=== PATIENT | female | born 1995 | race Native Hawaiian/Other Pacific Islander ===

== ENCOUNTER 2017-10-25 16:00 | Inpatient (IN) | payer BC, OTHER ==
[~2017-10-25] VITALS: Ht 160 cm; Wt 54.5 kg
[~2017-10-25 16:00] MED LIST: DEXAMETHASONE SOD PHOS 4 MG/ML VIAL IV ONE; GLYCOPYRROLATE 1 MG/5 ML SYRINGE IV PUSH ONE; LIDOCAINE HCL 1% PF 5 ML SYRINGE OTHER ONE; NEOSTIGMINE 5 MG/5 ML SYRINGE IV PUSH ONE; ONDANSETRON HCL 4 MG/2 ML VIAL IV ONE; PROPOFOL 200 MG/20 ML AMP IV ONE; ROCURONIUM INJ 50 MG/5 ML SYRINGE IV PUSH ONE; Z.0.NO CURRENT MEDS
[2017-10-25] MEDS ORDERED: SODIUM CHLOR 0.9% 1000 ML INJ 1,000 ML IV SCH ×2 (16:07→19:16)
[2017-10-25 16:14] VITALS: BP 152/71; PULSE 137; RESP 18; TEMP 100.5; O2SAT 100
[2017-10-25] MEDS ORDERED: MORPHINE SULFATE 4 MG/ML INJ IV PUSH ONE ×2 (16:15→17:30)
[2017-10-25] MEDS ORDERED: ONDANSETRON HCL 4 MG/2 ML VIAL IVP ONE (16:15)
[2017-10-25] MEDS ORDERED: PIPERACIL-TAZO 3.375 GM PREMIX 50 ML IV ONE ×2 (16:15→16:30)
[2017-10-25] MEDS ORDERED: ACETAMINOPHEN 325 MG TAB PO ONE (16:15)
[2017-10-25 16:17] VITALS: BP 152/71; PULSE 135; RESP 16; TEMP 100.5; O2SAT 99
[2017-10-25] MEDS ORDERED: SODIUM CHLOR 0.9% 1000 ML INJ 1,000 ML IV ONE ×3 (16:30→18:15)
[2017-10-25] MEDS ORDERED: METOCLOPRAMIDE HCL 10 MG/2 ML VIAL IV PUSH ONE (16:30)
[2017-10-25 16:36] LABS: AUTOMATED NEUTROPHIL # 14.9 TH/MM3 (1.8-7.7); BASOPHIL % 0.2 % (0.0-2.0); HEMATOCRIT 35.1 % (35.0-46.0); HEMOGLOBIN 11.1 GM/DL (11.6-15.3); LYMPH % 5.4 % (9.0-44.0); LYMPHOCYTE # 0.9 TH/MM3 (1.0-4.8); MEAN CELL VOLUME 75.4 FL (80.0-100.0); MEAN CORPUSCULAR HEMOGLOBIN 23.9 PG (27.0-34.0); MEAN CORPUSCULAR HGB CONC 31.7 % (32.0-36.0); MEAN PLATELET VOLUME 8.9 FL (7.0-11.0); MONO % 2.3 % (0.0-8.0); MONOCYTE # 0.4 TH/MM3 (0-0.9); NEUT % 92.1 % (16.0-70.0); PLATELET COUNT 362 TH/MM3 (150-450); RED BLOOD COUNT 4.65 MIL/MM3 (4.00-5.30); RED CELL DISTRIBUTION WIDTH 17.4 % (11.6-17.2); WHITE BLOOD COUNT 16.2 TH/MM3 (4.0-11.0)
[2017-10-25 16:43] LABS: BACTERIA, URINE OCC /hpf; BILIRUBIN, URINE NEG (NEG); BLOOD, URINE NEG (NEG); GLUCOSE,URINE NEG (NEG); KETONE, URINE 20 mg/dL (NEG); MUCUS URINE MANY /lpf (OCC); NITRITE,URINE NEG (NEG); SQUAMOUS EPITHELIAL CELL URINE 10 /hpf (0-5); URINE COLOR Amber (YELLW/STRAW); URINE LEUKOCYTE ESTERASE TRACE (NEG)
[2017-10-25 16:51] VITALS: BP 125/73; PULSE 104; RESP 16; O2SAT 100
[2017-10-25 16:54] LABS: ALBUMIN 3.7 GM/DL (3.4-5.0); ALT (GPT) 13 U/L (9-42); AST (GOT) 9 U/L (16-38); BICARBONATE 20.2 MEQ/L (21.0-32.0); BLOOD UREA NITROGEN 7 MG/DL (7-18); CHLORIDE 104 MEQ/L (98-107); CREATININE 0.86 MG/DL (0.50-1.00); GLOMERULAR FILTRATION RATE 84 ML/MIN (>89); GLUCOSE,RANDOM 99 MG/DL (74-106); SODIUM (NA) 137 MEQ/L (136-145)
[2017-10-25 16:56] LABS: ALKALINE PHOSPHATASE 52 U/L (45-117); TOTAL BILIRUBIN ADULT 0.6 MG/DL (0.2-1.0); TOTAL PROTEIN 8.1 GM/DL (6.4-8.2)
[2017-10-25] MEDS ORDERED: IOHEXOL 350 MG/ML 10 ML VIAL (for RAD DIAG) IVCONTRAST ONE (17:10)
--- NOTE | 2017-10-25 17:20 | RADRPT ---
EXAM DATE: 10/25/2017 5:08 PM EDT AGE/SEX: 22 years / Female INDICATIONS: Right sided abdominal pain, fever. CLINICAL DATA: This is the patient's initial encounter. Patient reports that signs and symptoms have been present for 1 day and indicates a pain score of 4/10. MEDICAL/SURGICAL HISTORY: None. Cholecystectomy. ORAL CONTRAST: No oral contrast ingested. RADIATION DOSE: 6.64 CTDI (mGy) COMPARISON: No prior exams available for comparison. TECHNIQUE: Multiple contiguous axial images were obtained through the abdomen and pelvis following b olus infusion of 72 ml Omnipaque 350 (iohexol) nonionic water-soluble contrast as a single exam dos e. No oral contrast ingested. Using automated exposure control and adjustment of the mA and/or kV ac cording to patient size, radiation dose was kept as low as reasonably achievable to obtain optimal di agnostic quality images. DICOM format image data is available electronically for review and comparis on. FINDINGS: Lower Lungs: The visualized lower lungs are clear. Liver: The liver has a homogeneous density without space-occupying lesion. There is no dilation of th e biliary tree. Spleen: Homogeneous density without enlargement. Pancreas: Unremarkable without mass or calcification. Kidneys: Normal in size and shape. No evidence of mass or hydronephrosis. Adrenal Glands: Unremarkable. Aorta: The aorta and proximal iliac vessels are grossly unremarkable without aneurysmal dilation. Bowel/Mesentery: The bowel loops are grossly unremarkable. The cecum and sigmoid colon have a normal configuration. The appendix is not clearly located. Abdominal Wall: Intact. Retroperitoneum: No evidence of adenopathy in the retrocrural, para-aortic, or deep pelvic regions. Bladder: Contours are smooth. Reproductive Organs: No abnormal masses or calcifications seen. Small volume of nonspecific free pel emre fluid identified. Inguinal: The inguinal region is unremarkable without evidence of adenopathy. Bony Structures: Unremarkable. CONCLUSION: Nonspecific free pelvic fluid. Electronically signed by: Perry Montoya MD 10/25/2017 5:18 PM EDT
--- NOTE | 2017-10-25 18:07 | PD ---
HPI Chief Complaint: Abdominal Pain Time Seen by Provider: 16:04 Travel History International Travel<30 days: No Contact w/Intl Traveler<30days: No Traveled to known affect area: No History of Present Illness HPI 22-year-old female that presents to the ED for evaluation of right lower quadrant pain. Apparently per patient she has had this for about 14 hours now. Per patient is becoming more severe. She has had episodes like this before but never as long-lasting as this 1. Per patient his pain is more severe. She went to see urgent care at [place] and they took a look at her and told her to come here as she was very tachycardic, had a fever and she had significant right lower quadrant pain. She was brought here by ambulance. She states that the pain currently is 10 out of 10. She feels very uncomfortable with laying or sitting. Standing makes it better. She denies any discharge. No possibility of . No medical issues. Takes no medications. No urinary or bowel movement issues. She does have some chills and sweats. She has had surgery for her gallbladder removal in 2009. Denies any nausea or vomiting. No chest pain or shortness of breath. PFSH Past Medical History Medical History: Denies Significant Hx Diminished Hearing: No Immunizations Current: Yes Tetanus Vaccination: < 5 Years Influenza Vaccination: Yes ?: Not Past Surgical History Abdominal Surgery: Yes (GALL BLADDER 01/07) Cholecystectomy: Yes Pacemaker: No Social History Alcohol Use: No Tobacco Use: No Substance Use: No Allergies-Medications (Allergen,Severity, Reaction): Coded Allergies: No Known Allergies (Verified Allergy, Unknown, 10/25/17) Reported Meds & Prescriptions Reported Meds & Active Scripts Active No Active Prescriptions or Reported Medications Review of Systems Except as stated in HPI: all other systems reviewed are Neg Physical Exam Narrative GENERAL: SKIN: Warm and dry. HEAD: Atraumatic. Normocephalic. EYES: Pupils equal and round. No scleral icterus. No injection or drainage. ENT: No nasal bleeding or discharge. Mucous membranes pink and moist. Tongue is midline. No uvula deviation. NECK: Trachea midline. No JVD. CARDIOVASCULAR: Regular rate and rhythm. No murmurs, S3, S4. RESPIRATORY: No accessory muscle use. Clear to auscultation. Breath sounds equal bilaterally. GASTROINTESTINAL: Abdomen soft, significant pain on the right lower quadrant with any touch, nondistended. Hepatic and splenic margins not palpable. MUSCULOSKELETAL: Extremities without clubbing, cyanosis, or edema. No obvious deformities. Full range of motion of the upper and lower extremities bilaterally. 2+ pulses bilaterally. NEUROLOGICAL: Awake and alert. No obvious cranial nerve deficits. Motor grossly within normal limits. Five out of 5 muscle strength in the arms and legs. Normal speech. PSYCHIATRIC: Appropriate mood and affect; insight and judgment normal. Data Data Last Documented VS Vital Signs Date Time Temp Pulse Resp B/P (MAP) Pulse Ox O2 Delivery O2 Flow Rate FiO2 10/25/17 16:51 104 16 125/73 (90) 100 Room Air 10/25/17 16:17 100.5 Orders Orders Complete Blood Count With Diff (10/25/17 16:07) Comprehensive Metabolic Panel (10/25/17 16:07) Lipase (10/25/17 16:07) Lactic Acid (10/25/17 16:07) Urinalysis - C+S If Indicated (10/25/17 16:07) Iv Access Insert/Monitor (10/25/17 16:07) Ecg Monitoring (10/25/17 16:07) Oximetry (10/25/17 16:07) Morphine Inj (Morphine Inj) (10/25/17 16:15) Ondansetron Inj (Zofran Inj) (10/25/17 16:15) Sodium Chlor 0.9% 1000 Ml Inj (Ns 1000 M (10/25/17 16:07) Electrocardiogram (10/25/17 16:07) Acetaminophen (Tylenol) (10/25/17 16:15) Piperacil-Tazo 3.375 Gm Premix (Zosyn 3. (10/25/17 16:15) Ct Abd/Pel W Iv Contrast(Rout) (10/25/17 16:15) Sodium Chlor 0.9% 1000 Ml Inj (Ns 1000 M (10/25/17 16:30) Metoclopramide Inj (Reglan Inj) (10/25/17 16:30) Piperacil-Tazo 3.375 Gm Premix (Zosyn 3. (10/25/17 16:30) Ed Urine Pregnancytest Poc (10/25/17 16:37) Urine Culture (10/25/17 16:25) Iohexol 350 Inj (Omnipaque 350 Inj) (10/25/17 17:10) Sodium Chlor 0.9% 1000 Ml Inj (Ns 1000 M (10/25/17 17:30) Morphine Inj (Morphine Inj) (10/25/17 17:30) Admit Order (Ed Use Only) (10/25/17 17:51) Labs Laboratory Tests Test 10/25/17 16:25 White Blood Count 16.2 TH/MM3 Red Blood Count 4.65 MIL/MM3 Hemoglobin 11.1 GM/DL Hematocrit 35.1 % Mean Corpuscular Volume 75.4 FL Mean Corpuscular Hemoglobin 23.9 PG Mean Corpuscular Hemoglobin Concent 31.7 % Red Cell Distribution Width 17.4 % Platelet Count 362 TH/MM3 Mean Platelet Volume 8.9 FL Neutrophils (%) (Auto) 92.1 % Lymphocytes (%) (Auto) 5.4 % Monocytes (%) (Auto) 2.3 % Eosinophils (%) (Auto) 0.0 % Basophils (%) (Auto) 0.2 % Neutrophils # (Auto) 14.9 TH/MM3 Lymphocytes # (Auto) 0.9 TH/MM3 Monocytes # (Auto) 0.4 TH/MM3 Eosinophils # (Auto) 0.0 TH/MM3 Basophils # (Auto) 0.0 TH/MM3 CBC Comment DIFF FINAL Differential Comment Urine Color Edith Urine Turbidity CLOUDY Urine pH 6.0 Urine Specific [place] 1.025 Urine Protein 30 mg/dL Urine Glucose (UA) NEG mg/dL Urine Ketones 20 mg/dL Urine Occult Blood NEG Urine Nitrite NEG Urine Bilirubin NEG Urine Urobilinogen LESS THAN 2 mg/dL Urine Leukocyte Esterase TRACE Urine RBC 6 /hpf Urine WBC 9 /hpf Urine Squamous Epithelial Cells 10 /hpf Urine Bacteria OCC /hpf Urine Mucus MANY /lpf Microscopic Urinalysis Comment CULTURE INDICATED Blood Urea Nitrogen 7 MG/DL Creatinine 0.86 MG/DL Random Glucose 99 MG/DL Total Protein 8.1 GM/DL Albumin 3.7 GM/DL Calcium Level 9.0 MG/DL Alkaline Phosphatase 52 U/L Aspartate Amino Transf (AST/SGOT) 9 U/L Alanine Aminotransferase (ALT/SGPT) 13 U/L Total Bilirubin 0.6 MG/DL Sodium Level 137 MEQ/L Potassium Level 3.7 MEQ/L Chloride Level 104 MEQ/L Carbon Dioxide Level 20.2 MEQ/L Anion Gap 13 MEQ/L Estimat Glomerular Filtration Rate 84 ML/MIN Lactic Acid Level 3.3 mmol/L Lipase 65 U/L MDM Medical Decision Making Medical Screen Exam Complete: Yes Emergency Medical Condition: Yes Medical Record Reviewed: Yes Interpretation(s) Last Impressions Abdomen/Pelvis CT 10/25/17 1615 Signed Impressions: CONCLUSION: Nonspecific free pelvic fluid. CBC & BMP Diagram 10/25/17 16:25 Total Protein 8.1, Albumin 3.7, Calcium Level 9.0, Alkaline Phosphatase 52, Aspartate Amino Transf (AST/SGOT) 9 L, Alanine Aminotransferase (ALT/SGPT) 13, Total Bilirubin 0.6 lactic acid elevated Differential Diagnosis Right lower quadrant pain versus appendicitis versus acute abdomen versus UTI versus rupture appendix versus sepsis Narrative Course 22-year-old female that presents to the ED for evaluation of right lower quadrant abdominal pain. Patient was properly examined by me in my attending Dr. Hernandez who agrees with plan. There is definitely concern for appendicitis versus ruptured appendix. She is very uncomfortable examined she is very tachycardic with a fever. Labs and imaging were ordered. Labs and imaging show what appears to be sepsis. CT did not appreciate appendicitis. I discussed the case with Dr. Bhakta for radiology who reviewed the CT and concluded the likely symptoms are appendicitis and patient will likely need general surgery consult. I spoke with Dr. Pfeiffer over the phone who will come here to evaluate the patient for likely surgery tonight, he agreed to admit patient to his service. Sepsis Criteria SIRS Criteria (2 or more): Heart rate over 90, WBC > 55029, < 4000 or > 10% bands Sepsis Criteria (SIRS+source): Infect source susp/known Severe Sepsis (+one): Lactate >2 Diagnosis Primary Impression: Appendicitis, acute Qualified Codes: K35.80 - Unspecified acute appendicitis Additional Impression: Sepsis Qualified Codes: A41.9 - Sepsis, unspecified organism Admitting Information Admitting Physician Requests: Admit Scripts No Active Prescriptions or Reported Meds Devon Jones Oct 25, 2017 18:07
--- NOTE | 2017-10-25 18:13 | PD ---
Data Data Last Documented VS Vital Signs Date Time Temp Pulse Resp B/P (MAP) Pulse Ox O2 Delivery O2 Flow Rate FiO2 10/25/17 16:51 104 16 125/73 (90) 100 Room Air 10/25/17 16:17 100.5 Orders Orders Complete Blood Count With Diff (10/25/17 16:07) Comprehensive Metabolic Panel (10/25/17 16:07) Lipase (10/25/17 16:07) Lactic Acid (10/25/17 16:07) Urinalysis - C+S If Indicated (10/25/17 16:07) Iv Access Insert/Monitor (10/25/17 16:07) Ecg Monitoring (10/25/17 16:07) Oximetry (10/25/17 16:07) Morphine Inj (Morphine Inj) (10/25/17 16:15) Ondansetron Inj (Zofran Inj) (10/25/17 16:15) Sodium Chlor 0.9% 1000 Ml Inj (Ns 1000 M (10/25/17 16:07) Electrocardiogram (10/25/17 16:07) Acetaminophen (Tylenol) (10/25/17 16:15) Piperacil-Tazo 3.375 Gm Premix (Zosyn 3. (10/25/17 16:15) Ct Abd/Pel W Iv Contrast(Rout) (10/25/17 16:15) Sodium Chlor 0.9% 1000 Ml Inj (Ns 1000 M (10/25/17 16:30) Metoclopramide Inj (Reglan Inj) (10/25/17 16:30) Piperacil-Tazo 3.375 Gm Premix (Zosyn 3. (10/25/17 16:30) Ed Urine Pregnancytest Poc (10/25/17 16:37) Urine Culture (10/25/17 16:25) Iohexol 350 Inj (Omnipaque 350 Inj) (10/25/17 17:10) Sodium Chlor 0.9% 1000 Ml Inj (Ns 1000 M (10/25/17 17:30) Us Pelvis Comp W Doppler (10/25/17 ) Morphine Inj (Morphine Inj) (10/25/17 17:30) Admit Order (Ed Use Only) (10/25/17 17:51) Labs Laboratory Tests Test 10/25/17 16:25 White Blood Count 16.2 TH/MM3 Red Blood Count 4.65 MIL/MM3 Hemoglobin 11.1 GM/DL Hematocrit 35.1 % Mean Corpuscular Volume 75.4 FL Mean Corpuscular Hemoglobin 23.9 PG Mean Corpuscular Hemoglobin Concent 31.7 % Red Cell Distribution Width 17.4 % Platelet Count 362 TH/MM3 Mean Platelet Volume 8.9 FL Neutrophils (%) (Auto) 92.1 % Lymphocytes (%) (Auto) 5.4 % Monocytes (%) (Auto) 2.3 % Eosinophils (%) (Auto) 0.0 % Basophils (%) (Auto) 0.2 % Neutrophils # (Auto) 14.9 TH/MM3 Lymphocytes # (Auto) 0.9 TH/MM3 Monocytes # (Auto) 0.4 TH/MM3 Eosinophils # (Auto) 0.0 TH/MM3 Basophils # (Auto) 0.0 TH/MM3 CBC Comment DIFF FINAL Differential Comment Urine Color Edith Urine Turbidity CLOUDY Urine pH 6.0 Urine Specific [place] 1.025 Urine Protein 30 mg/dL Urine Glucose (UA) NEG mg/dL Urine Ketones 20 mg/dL Urine Occult Blood NEG Urine Nitrite NEG Urine Bilirubin NEG Urine Urobilinogen LESS THAN 2 mg/dL Urine Leukocyte Esterase TRACE Urine RBC 6 /hpf Urine WBC 9 /hpf Urine Squamous Epithelial Cells 10 /hpf Urine Bacteria OCC /hpf Urine Mucus MANY /lpf Microscopic Urinalysis Comment CULTURE INDICATED Blood Urea Nitrogen 7 MG/DL Creatinine 0.86 MG/DL Random Glucose 99 MG/DL Total Protein 8.1 GM/DL Albumin 3.7 GM/DL Calcium Level 9.0 MG/DL Alkaline Phosphatase 52 U/L Aspartate Amino Transf (AST/SGOT) 9 U/L Alanine Aminotransferase (ALT/SGPT) 13 U/L Total Bilirubin 0.6 MG/DL Sodium Level 137 MEQ/L Potassium Level 3.7 MEQ/L Chloride Level 104 MEQ/L Carbon Dioxide Level 20.2 MEQ/L Anion Gap 13 MEQ/L Estimat Glomerular Filtration Rate 84 ML/MIN Lactic Acid Level 3.3 mmol/L Lipase 65 U/L [facility] [place] Medical Record Reviewed: Yes Supervised Visit with RED: Yes Narrative Course I, Dr. Hernandez, have reviewed the advance practice practitioner's documentation and am in agreement, met with the patient face to face, made the diagnosis, and the medical decision making was done by me. *My assessment and Findings: CBC & BMP Diagram 10/25/17 16:25 Total Protein 8.1, Albumin 3.7, Calcium Level 9.0, Alkaline Phosphatase 52, Aspartate Amino Transf (AST/SGOT) 9 L, Alanine Aminotransferase (ALT/SGPT) 13, Total Bilirubin 0.6 Lactic acid 3.3 Lipase normal Urinalysis is consistent with cystitis Urine is negative CT scan shows possible appendicitis The patient has very tender abdomen which is soft and not peritoneal. She nonetheless is tachycardic with leukocytosis and fever. His presentation is concerning for appendicitis. This was discussed with Dr. Bhakta of radiology. This was also discussed with Dr. Pfeiffer a general surgery. RAMSYE Jones coordinated the care in the ED and the patient will go to the OR under the care of Dr. Kentrell kapoor. Sepsis Criteria SIRS Criteria (2 or more): Heart rate over 90, WBC > 09236, < 4000 or > 10% bands Sepsis Criteria (SIRS+source): Infect source susp/known Severe Sepsis (+one): Lactate >2 Diagnosis Primary Impression: Appendicitis, acute Qualified Codes: K35.80 - Unspecified acute appendicitis Additional Impression: Sepsis Qualified Codes: A41.9 - Sepsis, unspecified organism Admitting Information Admitting Physician Requests: Admit Scripts No Active Prescriptions or Reported Meds Oscar Hernandez MD Oct 25, 2017 18:13
[2017-10-25 18:29] VITALS: BP 123/89; PULSE 105; RESP 16; TEMP 99.4; O2SAT 100
[2017-10-25] MEDS ORDERED: ACETAMINOPHEN 1000 MG/100 ML 100 ML IV ONE (18:52)
[2017-10-25] MEDS ORDERED: fentaNYL CITRATE 250 MCG/5 ML AMP ONE (18:53)
[2017-10-25] MEDS ORDERED: MIDAZOLAM HCL 2 MG/2 ML VIAL ONE (18:53)
[2017-10-25 18:58] VITALS: PULSE 121
[2017-10-25] MEDS ORDERED: BUPIVACAINE/EPINEPHRINE 0.5% 50 ML VIAL ONE (19:00)
--- NOTE | 2017-10-25 19:20 | HHI.PR ---
Immediate Post Op Note Procedure Date: Oct 25, 2017 Pre Op Diagnosis: acute appendicitis Post Op Diagnosis: same Surgeon: Juan Ramon Pfeiffer MD Beam Dyer Operator(s): see or sheet Procedure: lap appy Findings: inflammed appendix Complications: none Specimen(s) removed: appendix Estimated blood loss: 5cc Anesthesia: General Drains: None Patient to: PACU Patient Condition: Good Juan Ramon Pfeiffer MD Oct 25, 2017 19:20
[2017-10-25] MEDS ORDERED: HYDROmorphone HCL PF 1 MG/ML VIAL IV PUSH PRN (19:30)
[2017-10-25] MEDS ORDERED: Post-op Orders (for Pharmacy) XX ONE (19:30)
[2017-10-25] MEDS ORDERED: ONDANSETRON HCL 4 MG/2 ML VIAL IV PUSH PRN (19:30)
[2017-10-25] MEDS ORDERED: ACETAMINOPHEN/HYDROcodone 325 MG/5 MG TAB PO PRN (19:30)
[2017-10-25] MEDS ORDERED: SODIUM CHLORIDE 0.9% FLUSH 10 ML FLUSH IV FLUSH PRN (19:30)
[2017-10-25] MEDS ORDERED: METOCLOPRAMIDE HCL 10 MG/2 ML VIAL IVS PRN (19:30)
--- NOTE | 2017-10-25 20:32 | MP ---
cc: Juan Ramon Pfeiffer MD, Lars S MD DATE OF OPERATION: 10/25/2017 PREOPERATIVE DIAGNOSIS: Acute appendicitis. POSTOPERATIVE DIAGNOSIS: Acute appendicitis. PROCEDURE PERFORMED: Laparoscopic appendectomy. SURGEON: Juan Ramon Pfeiffer MD ANESTHESIA: GETA. IV FLUIDS: See anesthesia sheet. ESTIMATED BLOOD LOSS: 5 mL DRAINS: None. COMPLICATIONS: None WOUND CLASSIFICATION: Clean contaminated. FINDINGS: Acute appendicitis. Non-perforation. SPECIMENS: Appendix. INDICATIONS FOR PROCEDURE: The patient is a 22-year-old female who presents with acute onset of abdominal pain. She states the pain started in the right lower quadrant, somewhat diffuse and progressed and got worse. She came to the emergency department for evaluation including CT scan with somewhat equivocal, but concern for acute appendicitis. She also had leukocytosis. Decision was made for laparoscopic appendectomy. DETAILS OF PROCEDURE: The patient was taken to the operating suite, placed in supine position. She was prepped and draped in usual sterile fashion after induction of general endotracheal anesthesia. Brief timeout done stating correct patient, procedure, surgical site. All were in agreement with this. Attention first directed to the umbilicus where local anesthetic was injected. Small stab makeda incision was done. The Veress needle was used. Abdomen insufflated to 15 mm pneumoperitoneum after saline drop test confirmed intra-abdominal placement. A 5 mm vision scope was inserted in the abdomen safely. On cursory inspection, no evidence of injury. Two other ports placed, one 5 mm suprapubic followed by a left lower quadrant 12 mm. The patient was placed in Trendelenburg and airplaned to the left. The right lower quadrant was explored. The appendix was noted to be somewhat retrocecal and had a significant thickening with some induration in the central portion of the appendix. The appendix was grasped. A small window was made at the base of the mesoappendix with electro Bovie cautery and a [place]. A window was made and the 35 Endo-KATARINA stapler was used to transect the base of the appendix. The mesoappendix was transected with a 35 KATARINA stapler. Hemostasis was obtained. No evidence of further pathology. The appendix was removed from the left lower quadrant port through an Endo Catch bag. The left lower quadrant port was closed with 0 Vicryl on a UR-6. 4-0 Monocryl was used for all subcuticular sutures at all port sites after ports were removed and pneumoperitoneum was removed. Sterile dressing was then placed. The patient tolerated the procedure well. There were no inoperative complications. All lap and instrument counts were correct at the end of the procedure. The patient was extubated and taken stable to PACU. MD ZENON Keene/ , 08:12 PM , 08:30 PM
[2017-10-25] MEDS ORDERED: DO NOT ADM ANY ANTICOAGULANT DRUGS PRN (20:45)
[2017-10-25] MEDS ORDERED: SODIUM CHLORIDE 0.9% FLUSH 10 ML FLUSH IV FLUSH SCH (21:00)
[2017-10-25] MEDS: DOCUSATE SODIUM 100 MG CAP PO SCH (21:00)
[2017-10-25 21:20] VITALS: BP 121/67; PULSE 93; RESP 16; TEMP 98.8; O2SAT 100
--- NOTE | 2017-10-25 21:52 | MH ---
cc: Juan Ramon Pfeiffer MD, Lars S MD DATE OF ADMISSION: 10/25/2017 CHIEF COMPLAINT: Abdominal pain, appendicitis. HISTORY OF PRESENT ILLNESS: The patient is a 22-year-old female who presents with acute onset of right lower quadrant abdominal pain. She states the pain started approximately 1:30 a.m. ,woke her up from sleep and was a 10/10 and was severe. She had some mild pain prior; however, this was more significant and acute in onset. She states worse with movement, better with lying still. She has not had pain quite this severe ever and she came to be evaluated in the emergency department including a CT scan showing concern after my review for appendicitis and she also had leukocytosis. She denies being hungry and further denies change in bowel habits. PAST MEDICAL HISTORY: The patient has no medical history. PAST SURGICAL HISTORY: The patient has had a laparoscopic cholecystectomy. SOCIAL HISTORY: Denies smoking, ETOH or IVDA. MEDICATIONS: See EMR. ALLERGIES: NO KNOWN DRUG ALLERGIES. FAMILY HISTORY: Denies diabetes or hypertension. REVIEW OF SYSTEMS: GENERAL: Denies fevers, chills. HEENT: Denies eye pain, ear pain. NECK: Denies swelling or pain. LUNGS: Denies cough or wheeze. HEART: Denies palpitation or chest pain. ABDOMEN: Complains of abdominal pain. Denies vomiting. EXTREMITIES: Denies arthralgias, myalgias. NEUROLOGIC: Denies numbness or tingling. PSYCHIATRIC: Denies change in mood and affect. PHYSICAL EXAMINATION: GENERAL: The patient in no acute distress. VITAL SIGNS: Temperature 100.5, pulse 104, respirations 16, blood pressure 125/73, saturation 100%. HEENT: Pupils equal, round, reactive. Moist membranes. NECK: Supple. Trachea midline. LUNGS: Clear to auscultation, bilateral expansion. HEART: S1, S2. Regular rhythm. No murmur. ABDOMEN: Soft. Positive tender to palpation. Positive rebound right lower quadrant, diffuse overall tenderness, nondistended. EXTREMITIES: Warm and well perfused. NEUROLOGIC: 5/5 motor in all extremities. Normal speech. Awake, alert. PSYCHIATRIC: Appropriate insight, appropriate judgment. BACK: Normal curvature. LABORATORY AND DIAGNOSTIC DATA: WBC 16.2, hemoglobin 11.1, hematocrit 35.1, platelets 362. Sodium 137, potassium 3.5, chloride 104, BUN 7, creatinine 0.8. Lactate 3.3, AST 9, ALT 13, lipase 65. CT reviewed by myself showing stranding and some inflammation right lower quadrant, concern for dilated appendix. ASSESSMENT: The patient is a 22-year-old female who presents with acute onset of abdominal pain, concern for appendicitis. PLAN: After full clinical and radiological workup patient with the above-named issues including concern for acute appendicitis. At this point, discussed with the patient and family regarding need to go to the operating room for evaluation and laparoscopic appendectomy. She states understanding and agreed and would like to proceed. We discussed in detail the procedures. The patient will be on IV antibiotics, pain control, IV fluids, n.p.o. MD ZENON Keene/ , 09:29 PM , 09:50 PM
[2017-10-25] MEDS: HYDROmorphone HCL PF 2 MG/ML VIAL IV PRN (22:05)
[2017-10-26 01:00] VITALS: BP 118/69; PULSE 70; RESP 16; TEMP 98.6; O2SAT 100
[2017-10-26] MEDS: PIPERACIL-TAZO 3.375 GM PREMIX 50 ML IV SCH ×2 (01:10→08:21)
[2017-10-26] MEDS: HYDROmorphone HCL PF 2 MG/ML VIAL IV PRN ×2 (01:10→03:06)
[2017-10-26 04:00] VITALS: BP 117/65; PULSE 73; RESP 16; TEMP 97.8; O2SAT 100
[2017-10-26] MEDS: ACETAMINOPHEN/HYDROcodone 325 MG/5 MG TAB PO PRN ×2 (05:38→10:21)
[2017-10-26] MEDS: DOCUSATE SODIUM 100 MG CAP PO SCH (08:21)
[2017-10-26 08:27] VITALS: BP 103/56; PULSE 74; RESP 18; TEMP 98.6; O2SAT 100
[2017-10-26 08:34] LABS: BASOPHIL % 0.1 % (0.0-2.0); HEMATOCRIT 28.9 % (35.0-46.0); HEMOGLOBIN 9.2 GM/DL (11.6-15.3); LYMPH % 6.7 % (9.0-44.0); LYMPHOCYTE # 0.7 TH/MM3 (1.0-4.8); MEAN CELL VOLUME 76.6 FL (80.0-100.0); MEAN CORPUSCULAR HEMOGLOBIN 24.3 PG (27.0-34.0); MEAN CORPUSCULAR HGB CONC 31.7 % (32.0-36.0); MEAN PLATELET VOLUME 8.9 FL (7.0-11.0); MONO % 3.3 % (0.0-8.0); MONOCYTE # 0.3 TH/MM3 (0-0.9); NEUT % 89.9 % (16.0-70.0); PLATELET COUNT 249 TH/MM3 (150-450); RED BLOOD COUNT 3.77 MIL/MM3 (4.00-5.30); RED CELL DISTRIBUTION WIDTH 17.2 % (11.6-17.2)
[2017-10-26 09:14] LABS: BICARBONATE 20.5 MEQ/L (21.0-32.0); CALCIUM 8.2 MG/DL (8.5-10.1); CREATININE 0.55 MG/DL (0.50-1.00)
--- NOTE | 2017-10-26 10:43 | HHI.DS ---
Discharge Summary Admission Date Oct 25, 2017 at 17:52 Discharge Date: Oct 26, 2017 Admitting Diagnosis acute appendicitis, sepsis Brief History 22 year old female POD1 lap appy CBC/BMP: 10/26/17 0737 10/26/17 0737 Significant Findings Laboratory Tests Test 10/25/17 16:25 10/26/17 07:37 White Blood Count 16.2 TH/MM3 (4.0-11.0) Hemoglobin 11.1 GM/DL (11.6-15.3) 9.2 GM/DL (11.6-15.3) Mean Corpuscular Volume 75.4 FL (80.0-100.0) 76.6 FL (80.0-100.0) Mean Corpuscular Hemoglobin 23.9 PG (27.0-34.0) 24.3 PG (27.0-34.0) Mean Corpuscular Hemoglobin Concent 31.7 % (32.0-36.0) 31.7 % (32.0-36.0) Red Cell Distribution Width 17.4 % (11.6-17.2) Neutrophils (%) (Auto) 92.1 % (16.0-70.0) 89.9 % (16.0-70.0) Lymphocytes (%) (Auto) 5.4 % (9.0-44.0) 6.7 % (9.0-44.0) Neutrophils # (Auto) 14.9 TH/MM3 (1.8-7.7) 9.0 TH/MM3 (1.8-7.7) Lymphocytes # (Auto) 0.9 TH/MM3 (1.0-4.8) 0.7 TH/MM3 (1.0-4.8) Urine Turbidity CLOUDY (CLEAR) Urine Protein 30 mg/dL (NEG-TRACE) Urine Leukocyte Esterase TRACE (NEG) Urine RBC 6 /hpf (0-3) Urine WBC 9 /hpf (0-5) Urine Bacteria OCC /hpf (NONE) Urine Mucus MANY /lpf (OCC) Aspartate Amino Transf (AST/SGOT) 9 U/L (16-38) Carbon Dioxide Level 20.2 MEQ/L (21.0-32.0) 20.5 MEQ/L (21.0-32.0) Estimat Glomerular Filtration Rate 84 ML/MIN (>89) Lactic Acid Level 3.3 mmol/L (0.4-2.0) Lipase 65 U/L (73-393) Red Blood Count 3.77 MIL/MM3 (4.00-5.30) Hematocrit 28.9 % (35.0-46.0) Blood Urea Nitrogen 5 MG/DL (7-18) Calcium Level 8.2 MG/DL (8.5-10.1) PE at Discharge Alert and awake Cardio: RRR Resp: CTAB Abd: incision sites c/d//i with skin glue in place Hospital Course This is a 22 year old female POD1 laparoscopic appendectomy. She was able to tolerate a regular diet. Her pain was controlled using oral pain medications. She will follow up with Dr. Pfeiffer on November 03. Pt Condition on Discharge: Good Discharge Disposition: Discharge Home Discharge Instructions DIET: Follow Instructions for: As Tolerated, No Restrictions Activities you can perform: See Additionl Instruction Other Activity Instructions: Okay to shower tomorrow morning Pat incisions dry Avoid heavy pushing pulling or lifting No bath tubs/beach/swimming pool until office visit Mary Li/First Charmaine CEJA Oct 26, 2017 10:43
[2017-10-26] MEDS ORDERED: HYDR-3516 PO (10:49)
[2017-10-26 12:00] VITALS: RESP 16
--- NOTE | 2017-10-26 19:12 | EKG ---
Date Performed: 10/25/2017 Time Performed: 17:43:23 PTAGE: 22 years EKG: SINUS TACHYCARDIA ABNORMAL RHYTHM ECG NO PREVIOUS TRACING DOCTOR: Aleks Murillo Interpretating Date/Time 10/26/2017 19:09:05
== END 2017-10-26 15:20 | disposition home or self-care (01) | DRG 854 ==
LOC: NEPE 16:00 → NEDA 17:52 → H6YA 20:58
PROVIDERS: ADMIT Surgery; ATTEND Surgery
PROC: 0DTJ4ZZ Resection of Appendix, Percutaneous Endoscopic Approach (ICD-10-PCS; principal; 2017-10-25 19:24)
DX: A41.9 Sepsis, unspecified organism (principal); K35.80 Unspecified acute appendicitis; E87.2 Acidosis; R65.20 Severe sepsis without septic shock; N30.90 Cystitis, unspecified without hematuria
CPT/HCPCS: 74177; 80048; 80053; 81001; 83605; 83690; 84703; 85025; 87086; 88304; 93005; 94150; J0131; J1100; J1170; J2250; J2270; J2405; J2543; J2710; J2765; J3010; J7030; Q9967